=== PATIENT | male | born 1995 | race Caucasian/White ===

== ENCOUNTER 2017-02-21 22:53 | Emergency (ER) | payer OTHER, BC ==
[~2017-02-21] VITALS: Ht 188 cm; Wt 76.3 kg
[2017-02-22 01:39] VITALS: BP 105/57
== END 2017-02-22 01:41 | disposition home or self-care (01) ==
LOC: TRA 22:53 → EME 22:53 → TRA 02-22 01:41
DX: S40.211A Abrasion of right shoulder, initial encounter (principal); S60.511A Abrasion of right hand, initial encounter; S30.810A Abrasion of lower back and pelvis, initial encounter; S80.211A Abrasion, right knee, initial encounter; V48.5XXA Car driver injured in noncollision transport accident in traffic accident, initial encounter; J45.909 Unspecified asthma, uncomplicated; F32.9 Major depressive disorder, single episode, unspecified
CPT/HCPCS: 70450; 72100; 73030; 73130; 73564; 74176; 99281; 99284